=== PATIENT | female | born 1955 | race African-American/Black ===

== ENCOUNTER 2016-09-15 19:52 | Emergency (ER) | payer MEDICAID ==
[~2016-09-15] VITALS: Ht 160 cm; Wt 61.0 kg
[~2016-09-15 19:52] MED LIST: ALBUTEROL; CLIN-79 PO; N325; NAPROXEN; SERT25TA PO; TRAM50TA73 PO; TRAZODONE
[2016-09-15] MEDS ORDERED: EPINEPHRINE 0.1MG/ML (1:10,000) 10ML SYR ONE ×2 (20:00→20:06)
[2016-09-15] MEDS ORDERED: SODIUM BICARBONATE 7.5% 0.9 MEQ/ML 50ML SYR IV ONE (20:00)
[2016-09-15] MEDS ORDERED: MAGNESIUM SULFATE 4G IN WATER 100ML PREMIX IV ONE (20:00)
[2016-09-15 20:20] VITALS: BP 0/0
== END 2016-09-15 20:01 | disposition expired ==
LOC: ER 20:00
DX: I46.9 Cardiac arrest, cause unspecified (principal)
CPT/HCPCS: 94003; 94640; 99285; J0171; J3475; J3490; Z7610